=== PATIENT | male | born 1985 | race Caucasian/White ===

== ENCOUNTER 2016-12-28 11:19 | Emergency (ER) | payer SELFPAY ==
[~2016-12-28] VITALS: Ht 172.7 cm; Wt 68.0 kg
[2016-12-28 11:21] VITALS: BP 129/73; PULSE 114; RESP 16; TEMP 97.8; O2SAT 98
[2016-12-28] MEDS ORDERED: PENI250T59 PO (11:34)
--- NOTE | 2016-12-28 11:35 | PD ---
HPI Chief Complaint: Oral / Dental Pain or Problem Time Seen by Provider: 11:34 Travel History International Travel<30 days: No Contact w/Intl Traveler<30days: No Traveled to known affect area: No History of Present Illness HPI 31-year-old male presents to the emergency department for evaluation of left- sided dental pain radiating to his left ear. Patient states that he's had poor dentition for years and has had pain in his left lower and upper molars for years. States that the pain has been worsening over the past month now radiating to the left side of his face and his left ear. He denies any fever, chills, nausea, vomiting, discharge or drainage, difficulty swallowing. He states that sometimes over the past month he has noticed some swelling on left side of his face although is not currently experiencing any swelling. He has been taking ibuprofen, Tylenol and Goody powders for his pain. No other complaints. PFSH Past Medical History Medical History: Denies Significant Hx Social History Alcohol Use: No Tobacco Use: Yes Substance Use: No Allergies-Medications (Allergen,Severity, Reaction): Coded Allergies: No Known Allergies (Unverified , 12/28/16) Reported Meds & Prescriptions Reported Meds & Active Scripts Active Penicillin Vk (Penicillin V Potassium) 250 Mg Tab 500 Mg PO Q8H 10 Days Review of Systems Except as stated in HPI: all other systems reviewed are Neg Physical Exam Narrative GENERAL: Well-nourished and well-developed pleasant patient in no acute distress who is nontoxic appearing. SKIN: Warm and dry. HEAD: Normocephalic and atraumatic. No facial swelling. EYES: No injection, drainage, or hyphema noted. PERRLA. EOMI. ENT: No nasal drainage noted. Oropharynx is clear and the TMs are normal with good landmarks. DENTAL: Poor dentition. Multiple dental caries 2 molars throughout. There are 2 left maxillary molars that has been broken off at the root and have erythema of the gingiva and tenderness to palpation. There is a left lower posterior molar that is decaying with tenderness to palpation as well. No fluctuance, no discharge or drainage. NECK: Supple and the trachea is midline. CARDIOVASCULAR: Regular rate and rhythm. RESPIRATORY: Breath sounds are equal bilaterally with no accessory muscle use, wheezing, rhonchi, or crackles. NEUROLOGICAL: Awake, alert, and oriented. Normal speech and gait. Cranial nerves are grossly intact. Data Data Last Documented VS Vital Signs Date Time Temp Pulse Resp B/P Pulse Ox O2 Delivery O2 Flow Rate FiO2 12/28/16 11:21 97.8 114 16 129/73 98 Room Air MDM Medical Decision Making Medical Screen Exam Complete: Yes Emergency Medical Condition: Yes Differential Diagnosis Dental infection versus caries versus pulpitis Narrative Course 31-year-old male presents to the emergency department for evaluation of left- sided dental pain. Patient is afebrile, vital signs stable. He has poor dentition and this is been ongoing for several years but the pain has acutely worsened over the past month. We'll give him a prescription for penicillin. Stressed the importance of follow-up with a dentist. Patient verbalizes understanding and agreement with treatment plan. Diagnosis Primary Impression: Dental infection Referrals: Dentist Patient Instructions: Dental Caries (ED), General Instructions Additional Instructions: Take medications as prescribed with food and a full glass of water. Follow-up with a Dentist. Return to the ED for any acute worsening of symptoms. Med/Other Pt SpecificInfo: Prescription(s) given Scripts Penicillin V Potassium (Penicillin Vk)250 Mg [id number] Mg PO Q8H 10 Days Ref 0 Prov:Mat Wahl MD 12/28/16 Disposition: 01 DISCHARGE HOME Condition: Stable Julieth Peck Dec 28, 2016 11:35
== END 2016-12-28 11:49 | disposition home or self-care (01) ==
LOC: NEPB 11:19
DX: K04.7 Periapical abscess without sinus (principal); Z72.0 Tobacco use
CPT/HCPCS: 99282